=== PATIENT | female | born 1960 | race African-American/Black ===

== ENCOUNTER → 2017-08-10 | Outpatient (CLI) | payer OTHER | LOC: FIMAGING 13:47 | DX: Z12.31 Encounter for screening mammogram for malignant neoplasm of breast (principal) | CPT/HCPCS: G0202 ==

== ENCOUNTER 2018-09-06 05:50 | Day surgery (SDC) | payer BC, OTHER ==
[2018-09-06] MEDS ORDERED: ceFAZolin 2 GM/DEXTROSE 100 ML IV ONE (06:06)
[2018-09-06] MEDS ORDERED: LR 1,000 ML IV ONE (06:06)
[2018-09-06] MEDS ORDERED: MIDAZOLAM 2 MG/2 ML VIAL IVP ONE (06:52)
--- NOTE | 2018-09-06 06:52 | PDANEPAE ---
ANE History of Present Illness left side LN enlargement ANE Past Medical History - Cardiovascular History Hx Hypertension: Yes Hx Arrhythmias: No Hx Chest Pain: No Hx Coronary Artery / Peripheral Vascular Disease: No Hx CHF / Valvular Disease: No Hx Palpitations: No - Pulmonary History Hx COPD: No Hx Asthma/Reactive Airway Disease: No Hx Recent Upper Respiratory Infection: No Hx Oxygen in Use at Home: No Hx Sleep Apnea: No Sleep Apnea Screening Result - Last Documented: Negative - Neurologic History Hx Cerebrovascular Accident: No Hx Seizures: No Hx Dementia: No - Endocrine History Hx Diabetes: No Hypothyroid: No Hyperthyroid: No Obesity: no Endocrine History Comment: pre-diabetic on metformin - Renal History Hx Renal Disorders: No - Liver History Hx Hepatic Disorders: No - Neurological & Psychiatric Hx Hx Neurological and Psychiatric Disorders: No - Congenital Disorder History Hx Congenital Disorders: No - GI History GERD: no Hx Gastrointestinal Disorders: No - Other Health History Other Health History: none - Chronic Pain History Chronic Pain: No - Surgical History Prior Surgeries: none ANE Review of Systems Review of systems is: negative Review of Systems: - Exercise capacity METS (RN): 5 METS ANE Patient History - Allergies Allergies/Adverse Reactions: No Known Allergies Allergy (Unverified 09/06/18 06:34) - Home Medications Home medications: home medication list seen and reviewed Home Medications: Hydrochlorothiazide [HCTZ (*)] 09/06/18 [Last Taken 09/05/18] metFORMIN HCL [Metformin HCl] 850 mg PO 09/06/18 [Last Taken 09/05/18] - NPO status NPO Status: no food or drink >8 hours NPO Since - Liquids (Date): 09/05/18 NPO Since - Liquids (Time): 20:00 NPO Since - Solids (Date): 09/05/18 NPO Since - Solids (Time): 06:25 - Anes Hx Anes Hx: no prior problems - Smoking Hx Smoking Status: Former smoker Marijuana use: No - Alcohol Use Alcohol Use: Rarely - Family Anes Hx Family Anes Hx: none Family Hx Anesthesia Complications: no ANE Labs/Vital Signs - Vital Signs Blood Pressure: 94/66 Heart Rate: 79 Respiratory Rate: 14 O2 Sat (%): 96 Height: 160.02 cm Weight: 65.771 kg ANE Physical Exam - Airway Neck exam: FROM Mallampati Score: Class 2 Mouth exam: normal dental/mouth exam - Pulmonary Pulmonary: no respiratory distress, clear to auscultation - Cardiovascular Cardiovascular: regular rate and rhythym, no murmur, rub, or gallop - ASA Status ASA Status: II ANE Anesthesia Plan Anesthesia Plan: GA w LMA
[2018-09-06] MEDS ORDERED: PROPOFOL 200 MG/20 ML VIAL ONE (06:54)
[2018-09-06] MEDS ORDERED: LIDOCAINE 2% 5 ML SDV ONE (06:54)
[2018-09-06] MEDS ORDERED: fentaNYL 100 MCG/2 ML INJ ONE (06:54)
[2018-09-06] MEDS ORDERED: BUPIVACAINE 0.5% 30 ML SDV ONE (07:03)
[2018-09-06] MEDS ORDERED: THROMBIN (BOVINE) 20,000 UNIT SPRAY TP ONE (07:03)
[2018-09-06] MEDS ORDERED: BACITRACIN ZINC 14.2 GM OINTTUBE TP ONE (07:04)
--- NOTE | 2018-09-06 07:08 | PDHPUP ---
History & Physical Update H&P update statement: This history and physical update is based on an assessment of the patient which was completed after admission or registration (within 24 hours), but prior to the surgery/procedure. H&P update: H&P reviewed & patient examined, no change in patient's condition since H&P completed
[2018-09-06] MEDS ORDERED: ePHEDrine SULFATE 25 MG/5 ML SYR ONE (07:36)
[2018-09-06] MEDS ORDERED: ONDANSETRON 4 MG/2 ML VIAL ONE (07:46)
[2018-09-06] MEDS ORDERED: DEXAMETHASONE 4 MG/ML VIAL ONE (07:46)
[2018-09-06] MEDS ORDERED: MEPERIDINE 25 MG/0.5 ML AMP IVP PRN (07:48)
[2018-09-06] MEDS ORDERED: HYDROmorphONE/DILAUDID 2 MG/ML INJ IVP PRN (07:48)
[2018-09-06] MEDS ORDERED: NALOXONE HCL 0.4 MG/ML INJ IVP PRN (07:48)
[2018-09-06] MEDS ORDERED: fentaNYL 100 MCG/2 ML INJ IVP PRN (07:48)
[2018-09-06] MEDS ORDERED: PROMETHAZINE HCL 25 MG/ML INJ IVP PRN (07:48)
--- NOTE | 2018-09-06 07:49 | POSTANESTH ---
Post Anesthetic Evaluation Cardiovascular Status: Normal, Stable Respiratory Status: Normal, Stable Level of Consciousness/Mental Status: Can Participate in Eval, Moderately Sleepy Pain Control: Adequate, Prn Tx Ordered Nausea/Vomiting Control: Adequate, Prn Tx Ordered Complications Possibly Related to Anesthesia: None Noted
--- NOTE | 2018-09-06 08:05 | POSTOPPROG ---
Post Op Note Date of Operation: 09/06/18 Surgeon: Kevin Harding Director Of Pupil Personnel Program: Clementine Anesthesiologist: Lisa Anesthesia: GET(General Endotracheal) Pre-op Diagnosis: B-cell lymphoma Post-op Diagnosis: same Indication: definitive diagnosis Procedure: L axillary LN excision Findings: necrotic LNs Inf/Abcess present in the surg proc area at time of surgery?: No Depth: Superfical (Skin SQ) EBL: Minimal Specimen(s): L axillary lymph nodes - fresh
[2018-09-06 09:36] VITALS: BP 95/65
--- NOTE | 2018-09-07 19:59 | GOP ---
DATE OF OPERATION: 09/06/2018 SURGEON: Kevin Harding MD CAD DRAFTSMAN: Unique Spring NP. ANESTHESIOLOGIST: Elmer Gonzalez MD. PREOPERATIVE DIAGNOSIS: Possible lymphoma with axillary adenopathy. POSTOPERATIVE DIAGNOSIS: Possible lymphoma with axillary adenopathy. PROCEDURE PERFORMED: Superficial left axillary node dissection. FINDINGS: The patient was found to have multiple enlarged matted nodes in the left axilla. DESCRIPTION OF PROCEDURE: The patient was taken to the operating room where she received satisfactor y general endotracheal anesthesia by Dr. Gonzalez. She was placed in supine position with the left arm o utstretched on an arm board, prepped and draped in the usual sterile fashion. A curvilinear incision was made in the base of the axilla. Dissection extended down through the subcutaneous tissue and th rough the axillary fascia. A cluster of enlarged nodes was grasped with the Allis clamp and dissecte d free. Hemostasis was obtained with hemoclips and electrocautery, and the nodes were sent to [facility] for flow cytometry. Hemostasis was carefully obtained. Some thrombin was placed in the ax illary cavity along with some 0.5% Marcaine. The wound was closed in layers using 3-0 Vicryl for the fascia and subcutaneous tissue and 4-0 Monocryl subcuticular stitch for the skin. She tolerated the procedure well. Blood loss negligible. No complications. Taken to recovery room in good condition . Copy requested to: Dr. Sebastian /[id number]/MODL
== END 2018-09-06 10:00 | disposition home or self-care (01) ==
LOC: FSGY 05:50
PROVIDERS: ATTEND Surgery
PROC: 07B20ZX Excision of Left Neck Lymphatic, Open Approach, Diagnostic (ICD-10-PCS; principal; 2018-09-06 07:15)
DX: K11.20 Sialoadenitis, unspecified (principal); D48.7 Neoplasm of uncertain behavior of other specified sites; R91.1 Solitary pulmonary nodule; I10 Essential (primary) hypertension; E78.5 Hyperlipidemia, unspecified; R73.03 Prediabetes; Z87.891 Personal history of nicotine dependence
CPT/HCPCS: 88184-90; 88185-91; J0690; J1100; J2250; J2405; J2704; J3010

== ENCOUNTER 2018-10-17 09:02 | Observation (INO) | payer BC ==
[2018-10-17] MEDS ORDERED: LIDOCAINE 1% 2 ML INJ ID PRN (09:43)
[2018-10-17] MEDS ORDERED: LR 1,000 ML IV ONE (09:43)
[2018-10-17] MEDS ORDERED: LIDO/EPI 1% **Not for Epidural 20 ML MDV ONE (09:59)
[2018-10-17] MEDS ORDERED: BACITRACIN ZINC 0.5 OZ OINTTUBE TP ONE (09:59)
[2018-10-17] MEDS ORDERED: OXYMETAZOLINE 30 ML NASAL SPRAY ONE (09:59)
[2018-10-17] MEDS ORDERED: ceFAZolin 2 GM/DEXTROSE 100 ML IV ONE (10:14)
[2018-10-17] MEDS ORDERED: DEXAMETHASONE 4 MG/ML VIAL IVP ONE (10:14)
[2018-10-17] MEDS ORDERED: MIDAZOLAM 2 MG/2 ML VIAL IVP ONE (10:35)
--- NOTE | 2018-10-17 10:35 | PDANEPAE ---
ANE History of Present Illness Parotid tumor, here for resection ANE Past Medical History - Cardiovascular History Hx Hypertension: Yes Hx Arrhythmias: No Hx Chest Pain: No Hx Coronary Artery / Peripheral Vascular Disease: No Hx CHF / Valvular Disease: No Hx Palpitations: No - Pulmonary History Hx COPD: No Hx Asthma/Reactive Airway Disease: No Hx Recent Upper Respiratory Infection: No Hx Oxygen in Use at Home: No Hx Sleep Apnea: No Sleep Apnea Screening Result - Last Documented: Negative - Neurologic History Hx Cerebrovascular Accident: No Hx Seizures: No Hx Dementia: No - Endocrine History Hx Diabetes: No Endocrine History Comment: pre-diabetic on metformin - Renal History Hx Renal Disorders: No - Liver History Hx Hepatic Disorders: No - Neurological & Psychiatric Hx Hx Neurological and Psychiatric Disorders: No - Cancer History Hx Cancer: No - Congenital Disorder History Hx Congenital Disorders: No - GI History Hx Gastrointestinal Disorders: No - Other Health History Other Health History: none - Chronic Pain History Chronic Pain: No - Surgical History Prior Surgeries: L AXILLARY LYMPH NODES ANE Review of Systems Review of Systems: - Exercise capacity METS (RN): 4 METS ANE Patient History - Allergies Allergies/Adverse Reactions: No Known Allergies Allergy (Verified 10/17/18 09:54) - Home Medications Home Medications: metFORMIN HCL [Metformin HCl] 850 mg PO DAILY 09/06/18 [Last Taken 10/16/18 09: 00] Hydrochlorothiazide [HCTZ (*)] 25 mg PO DAILY 10/02/18 [Last Taken 10/16/18 07: 00] Multivitamins [Multivitamin (*)] 1 each PO DAILY 10/02/18 [Last Taken 10/10/18] [place]-3 Fatty Acids [Fish Oil 1000 mg (*)] 1,000 mg PO DAILY 10/02/18 [Last Taken 10/10/18] - NPO status NPO Since - Liquids (Date): 10/16/18 NPO Since - Liquids (Time): 21:00 NPO Since - Solids (Date): 10/16/18 NPO Since - Solids (Time): 21:00 - Smoking Hx Smoking Status: Former smoker - Family Anes Hx Family Hx Anesthesia Complications: no ANE Labs/Vital Signs - Vital Signs Blood Pressure: 111/75 Heart Rate: 70 Respiratory Rate: 16 O2 Sat (%): 99 Height: 154.94 cm Weight: 63.503 kg ANE Physical Exam - Airway Neck exam: FROM Mallampati Score: Class 1 Mouth exam: normal dental/mouth exam - Pulmonary Pulmonary: no respiratory distress, no rales or rhonchi - Cardiovascular Cardiovascular: regular rate and rhythym, no murmur, rub, or gallop - ASA Status ASA Status: II ANE Anesthesia Plan Anesthesia Plan: general endotracheal anesthesia Total IV Anesthesia: No
[2018-10-17] MEDS ORDERED: MIDAZOLAM 2 MG/2 ML VIAL ONE (10:41)
[2018-10-17] MEDS ORDERED: PROPOFOL 200 MG/20 ML VIAL ONE ×2 (10:43→11:09)
[2018-10-17] MEDS ORDERED: ROCURONIUM 50 MG/5 ML VIAL ONE (10:43)
[2018-10-17] MEDS ORDERED: LIDOCAINE 2% 100 MG/5 ML SYR ONE (10:43)
[2018-10-17] MEDS ORDERED: fentaNYL 250 MCG/5 ML INJ ONE (10:43)
[2018-10-17] MEDS ORDERED: ONDANSETRON 4 MG/2 ML VIAL ONE (10:43)
[2018-10-17] MEDS ORDERED: SUCCINYLCHOLINE CHLORIDE 200 MG/10 ML SYR IVP ONE (11:09)
[2018-10-17] MEDS ORDERED: PHENYLEPHRINE HCL 100 MCG/ML SYR ONE (11:09)
[2018-10-17] MEDS ORDERED: HYDROmorphONE/DILAUDID 2 MG/ML INJ ONE (13:28)
[2018-10-17] MEDS ORDERED: ACETAMINOPHEN 500 MG TAB PO PRN (13:32)
[2018-10-17] MEDS ORDERED: LR 500 ML IV PRN (13:32)
[2018-10-17] MEDS ORDERED: ONDANSETRON 4 MG/2 ML VIAL IVP PRN (13:32)
[2018-10-17] MEDS ORDERED: oxyCODONE IR 5 MG TAB PO PRN (13:32)
[2018-10-17] MEDS ORDERED: MEPERIDINE 25 MG/0.5 ML AMP IVP PRN (13:32)
[2018-10-17] MEDS ORDERED: HYDROmorphONE/DILAUDID 2 MG/ML INJ IVP PRN (13:32)
[2018-10-17] MEDS ORDERED: fentaNYL 100 MCG/2 ML INJ IVP PRN (13:32)
[2018-10-17] MEDS ORDERED: PROMETHAZINE HCL 25 MG/ML INJ IVP PRN (13:32)
[2018-10-17] MEDS ORDERED: NALOXONE HCL 0.4 MG/ML INJ IVP PRN (13:32)
--- NOTE | 2018-10-17 13:43 | POSTOPPROG ---
Post Op Note Date of Operation: 10/17/18 Surgeon: Chai Barahona Qa Engineer: Angelica Anesthesia: GET(General Endotracheal) Pre-op Diagnosis: parotid mass c/w b cell lymphoma / nasal obstruction Post-op Diagnosis: same Indication: see above Procedure: left sup parotidecdtomy with SMRIT Findings: left parotid masses fz section c/w lymphoma Inf/Abcess present in the surg proc area at time of surgery?: No Depth: Deep Incisional (Fascial) EBL: 50-100 Total fluids administered: 1200 Complications: none Drains: Surendra (l) Specimen(s): left parotid mass
--- NOTE | 2018-10-17 13:55 | POSTANESTH ---
Post Anesthetic Evaluation Cardiovascular Status: Normal, Stable Respiratory Status: Normal, Stable Level of Consciousness/Mental Status: Can Participate in Eval, Alert and Oriented Pain Control: Adequate, Prn Tx Ordered Nausea/Vomiting Control: Adequate, Prn Tx Ordered Complications Possibly Related to Anesthesia: None Noted
[2018-10-17] MEDS ORDERED: ACETAMINOPHEN 325 MG TAB PO PRN (13:56)
[2018-10-17] MEDS ORDERED: fentaNYL 100 MCG/2 ML INJ ONE (14:11)
[2018-10-17] MEDS: NS 1,000 ML IV SCH (15:22)
[2018-10-17] MEDS: OXYCODONE/APAP 5/325 TAB PO PRN ×3 (15:35→21:17)
--- NOTE | 2018-10-17 17:23 | SOAPPROG ---
SOAP Progress Note Assessment/Plan: Assessment: Post op left superficial parotidectomy and SMRIT Pt doing well. No bleeding. No nerve deficits. Plan: If continues to do well will d/c in the morning 10/17/18 17:18 Subjective: Pt reports she is doing well. Objective: Vital Signs Temp Pulse Resp BP Pulse Ox 37.1 C 53 L 16 95/69 L 93 10/17/18 15:17 10/17/18 16:17 10/17/18 16:17 10/17/18 16:17 10/17/18 16:17 10/16/18 10/17/18 10/18/18 05:59 05:59 05:59 Intake Total 1325 Output Total 20 Balance 1305 VSS, afebrile, wound dry, pack in place. Resting comfortably - Pending Discharge Pending Discharge Within 24 Hours: Yes Pending Discharge Date: 10/18/18 Pending Discharge Time: 11:00 ICD10 Worksheet Patient Problems: Problems Problem Status Onset Parotid mass Acute
[2018-10-17] MEDS ORDERED: SODIUM CL NASAL 45 ML BTL EACHNARE PRN (17:30)
[2018-10-17] MEDS: OXYMETAZOLINE 30 ML NASAL SPRAY EACHNARE PRN (18:06)
[2018-10-18] MEDS: OXYCODONE/APAP 5/325 TAB PO PRN ×2 (03:41→08:27)
[2018-10-18] MEDS: NS 1,000 ML IV SCH (03:41)
[2018-10-18] MEDS: OXYMETAZOLINE 30 ML NASAL SPRAY EACHNARE PRN (04:52)
[2018-10-18 08:21] VITALS: BP 106/63
--- NOTE | 2018-10-18 11:41 | SOAPPROG ---
SOAP Progress Note Assessment/Plan: pt s/p parotidectomy yesterday. doing well. drain removed. new dressing applied. Plan: discharge today./ F/u 1 week. Apply ointment. call if any swelling. 10/18/18 11:41 Objective: Vital Signs Temp Pulse Resp BP Pulse Ox 36.6 C 65 16 106/63 99 10/18/18 08:00 10/18/18 08:00 10/18/18 08:00 10/18/18 08:00 10/18/18 08:00 10/17/18 10/18/18 10/19/18 05:59 05:59 05:59 Intake Total 1975 Output Total 20 Balance 1954 ICD10 Worksheet Patient Problems: Problems Problem Status Onset Parotid mass Acute
--- NOTE | 2018-10-18 11:42 | PDDCSUM ---
Discharge Summary Discharge Summary: pt s/parotidectomy yesterday. doing well. no complications. drain removed. f/u 1 week. call if any swelling.
--- NOTE | 2018-10-18 15:53 | GOP ---
DATE OF OPERATION: 10/17/2018 SURGEON: Alexandru Barahona MD BEATER AND PULPER FEEDER: Sina Dominguez MD. ANESTHESIA: general endotracheal. PREOPERATIVE DIAGNOSIS: 1. Left parotid masses, prior fine-needle biopsy read as consistent with B-cell lymphoma on flow, no w with progression of masses. 2. chronic nasal congestion. POSTOPERATIVE DIAGNOSIS: PROCEDURE PERFORMED: Left superficial parotidectomy with facial nerve dissection and preservation as well as submucosal resection of the inferior turbinates with partial resection of the inferior turbi nates and inferior turbinate outfracture with cautery. FINDINGS: 1. Two left parotid masses, inferior mass excised and read on frozen section as consistent with lymp camacho. 2. Severe inferior turbinate hypertrophy bilaterally resulting in complete nasal obstruction treated by submucosal resection of the inferior turbinates with inferior turbinate outfracture. ESTIMATED BLOOD LOSS: 50 mL. DESCRIPTION OF PROCEDURE: The patient was placed on the operating table in supine position. After i nduction of adequate general endotracheal anesthesia, a shoulder roll was placed on the patient's alyce ulder. The patient's head was turned toward the right, exposing the entire left face. At this point , an incision was planned and created in the standard position for parotidectomy. The incision in th e preauricular region curved briefly to pass posterior to the tragus and then ran anterior to the aur icle. It then extended into the upper neck in a standard fashion. The incision was carried down thr ough the underlying soft tissues until the SMAS was reached. The flap was then elevated well anterio rly in a plane superficial to the SMAS. It was noted the two separate masses were present in the par otid, both in its midportion and inferiorly. Dissection then proceeded along the sternocleidomastoid , and the parotid tissue was reflected anteriorly. The dissection of parotid tissues off the tragal cartilage and our goal was performed on a broad front so that further exposure in the region of the t ragal pointer could be obtained. The posterior belly of the digastric was dissected further posterio rly. In the area of the tragal pointer and superior aspect of the posterior belly of the digastric t he facial nerve was encountered. Care was given to the avoidance of trauma to the main trunk of the facial nerve as well as the facial nerve branches. The main trunk was dissected to the level of the pes anserinus by dividing the soft tissues superficial to the parotid after electrocautery with the b ipolar electrocautery. As dissection proceeded along the inferior nerve branches, the large inferior parotid mass was reflected further inferiorly. Progressive dissection of the nerve branches then pr oceeded, and once this had been completed the mass was dissected free of the facial nerve branches an d then delivered. Frozen section analysis of the left parotid mass was read as consistent with lymph oid infiltrate. The patient reviewed this in combination with a prior fine-needle biopsy which was r ead as suspicious for lymphoma and felt that further resection of the superior mass was not necessary in order to obtain a diagnosis, and likely this represented lymphoma. At this point, the parotid fl ap was laid back into position. A Surendra drain was placed deeply into the wound and passed up throu gh the posterior aspect of the skin flap. This was sutured into place with a 2-0 silk suture. The d eep layer closure of the wound was performed with interrupted 5-0 Monocryl sutures. The preauricular incision was closed with a running 5-0 rapid absorbing gut. The inferior portion of the wound was c losed with a running locked 5-0 Prolene sutures. At this point, attention was directed to the patien t's nose. The nose was noted to be essentially completely obstructed secondary to turbinate hypertro phy. Pledgets soaked in 0.5% Mauricio-Synephrine were inserted into the right and left sides of the nose. In addition, the soft tissues overlying the inferior turbinates were hydro infiltrated utilizing 1% lidocaine with 1:100,000 parts epinephrine. Initially, the left inferior turbinate was addressed. The Xomed polyp shaver utilizing a 2 mm blade was used to perform submucosal resection of the inferio r turbinates. Initially a stab incision was created along the anterior aspect of the turbinate and t hen numerous passes were made along the long axis of the inferior turbinate using the elevator portio n of the turbinate blade. At this point, suction was applied to the turbinate blade and numerous pas ses were made longitudinally on the left inferior turbinates to markedly reduce the submucosal mass. Once submucosal resection of the inferior turbinate had been completed, it was noted the turbinate s till remained somewhat hypertrophic. It was then infractured, and its medial and inferior margins we re cut with a curved scissors and then treated with the suction Bovie electrocautery. The turbinate was then outfractured. It was still noted that the tail of the turbinate was somewhat hypertrophic a nd obstructed the posterior aspect of the nasal cavity. The posterior aspect of the turbinate was tr eated with the suction Bovie electrocautery until it was markedly reduced in size. An identical proc edure was performed on the right before submucosal resection of the inferior turbinate was performed followed by partial resection of the inferior turbinates, inferior turbinate outfracture, and cautery of the tail of the turbinates. At this point rolled Telfa was inserted into the right and left side s of the nose to act as nasal packing. Attention was redirected to the parotid wound. Gloves were c hanged. At this point showed that sterility could be maintained. The area surrounding the wound was cleansed. Bacitracin was applied. The sterile Avalos pressure dressing was then applied. The ton ent was then awakened and transferred to postanesthesia recovery in stable condition. FLUID REPLACEMENT: 1200 mL. COMPLICATIONS: None. /[id number]/MODL
== END 2018-10-18 11:32 | disposition home or self-care (01) ==
LOC: F3E 09:02
PROVIDERS: ADMIT Otolaryngology; ATTEND Otolaryngology
PROC: 0CB90ZZ Excision of Left Parotid Gland, Open Approach (ICD-10-PCS; principal; 2018-10-17 10:30)
PROC: 09TL7ZZ Resection of Nasal Turbinate, Via Natural or Artificial Opening (ICD-10-PCS; principal; 2018-10-17 10:30)
DX: D49.0 Neoplasm of unspecified behavior of digestive system (principal); J34.89 Other specified disorders of nose and nasal sinuses; I10 Essential (primary) hypertension
CPT/HCPCS: 30140; 42410; G0378; 88184-90; 88185-91; 88323-90; 88342; J0330; J0690; J1100; J1170; J2001; J2250; J2370; J2405; J2704; J3010

== ENCOUNTER 2019-01-19 09:59 | Emergency (ER) | payer BC, OTHER ==
--- NOTE | 2019-01-19 10:06 | EDPHY ---
H & P Time Seen by Provider: 01/19/19 10:03 HPI/ROS: CHIEF COMPLAINT: Altered mental status, stroke alert Limitations: Altered mental to have status, patient unable to speak HISTORY OF PRESENT ILLNESS: 58-year-old female with HTN and diabetes presents with altered mental status. Last seen normal by son at 0700. c/o rt leg pain at that time. Family returned at 0930 and found pt with altered mental status, unable to speak and unable to follow commands. No seizure activity or known recent head trauma. No h/o drug use or prior similar episode. 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 REVIEW OF SYSTEMS: Unable to determine Source: Family Exam Limitations: Clinical condition - Medical/Surgical History Other PMH: HTN, Diabetes - Family History Significant Family History: No pertinent family hx - Social History Smoking Status: Former smoker Alcohol Use: Sober Drug Use: None - Physical Exam Exam: General Appearance: Alert, agitated, looks at me when I speak, mumbles, unable to answer questions Eyes: Pupils equal and round, no conjunctival pallor or injection ENT, Mouth: Mucous membranes moist Neck: Normal inspection Respiratory: Lungs are clear to auscultation anteriorly Cardiovascular: Regular rate and rhythm Gastrointestinal: Abdomen is soft and nontender Back: normal inspection Neurological: Alert, symmetric facial movements, moves all extremities, strong throughout, does not follow commands Skin: Warm and dry Extremities: Normal inspection, no erythema or swelling, ROM without apparent pain Psychiatric: Unable to determine Constitutional: Initial Vital Signs Temperature (C) 37.4 C 01/19/19 10:19 Heart Rate 111 H 01/19/19 10:19 Respiratory Rate 20 01/19/19 10:19 Blood Pressure 132/78 H 01/19/19 10:19 O2 Sat (%) 97 01/19/19 10:19 O2 Delivery Mode Room Air Allergies/Adverse Reactions: No Known Allergies Allergy (Verified 10/17/18 09:54) Home Medications: Medication Instructions Recorded metFORMIN HCL [Metformin HCl] 850 mg PO DAILY 09/06/18 Hydrochlorothiazide [HCTZ (*)] 25 mg PO DAILY 10/02/18 Multivitamins [Multivitamin (*)] 1 each PO DAILY 10/02/18 [place]-3 Fatty Acids [Fish Oil 1000 1,000 mg PO DAILY 10/02/18 mg (*)] Medical Decision Making - Diagnostics Imaging Results: Imaging Impressions Head CT 01/19/19 10:01 Impression: 1. Normal brain. No intracranial hemorrhage or evidence of acute ischemia. 2. Left parotid mass. Findings discussed with emergency department physician, Tamara Singer MD on January 19, 2019 at 10:13 a.m. Head CTA 01/19/19 10:17 Impression: 1. Normal intracranial arterial circulation. No evidence of embolic disease or aneurysm. 2. Patent venous system. CT angiogram neck: The cervicothoracic aorta is normal caliber, giving rise to normal four-vessel neck anatomy. The aortic arch has minimal calcified plaque. No aortic dissection in the arch. Minimal mixed calcified and noncalcified plaque in bilateral carotid bulbs results in less than 10% narrowing. No ulcerative plaque, occlusion, or dissection. Minimal motion artifact involves the distal left common carotid artery. Bilateral vertebral arteries are patent. The left vertebral artery is the dominant vessel feeding the posterior circulation. CT Neck: Lung apices are clear. Bilateral parotid ring-enhancing cystic nodules. The largest on the left measures 2.2 x 1.7 cm. The largest on the right measures 1.3 x 2.0 cm. No enlarged lymph nodes or necrotic nodes. No fluid collection in the neck. Impression: 1. Minimal bilateral carotid bulb plaque. No occlusion, dissection, or flow- limiting stenosis. 2. Patent bilateral vertebral arteries. 3. Bilateral cystic and solid parotid gland masses. Findings discussed with emergency department physician, Tamara Singer MD on January 19, 2019 at 10:48 a.m. Chest X-Ray 01/19/19 10:44 Impression: 1. Clear lungs. No evidence of aspiration or edema. 2. Borderline cardiomegaly. No failure. Imaging: Discussed imaging studies w/ score caller Radiologist, I viewed and interpreted images myself ED Course/Re-evaluation: This patient presents as a stroke alert with AMS. I met the patient in the hallway and she went directly to CT. Agitated, unable to speak, WILD equally, not following commands. ?post-ictal, CVA, metabolic encephalopathy. CT scan reported to me by Dr. Ricci is unremarkable except for a left parotid tumor. 1010a: family present. No h/o seizure and no recent illness/hospitalization. 1015a: Patient interviewed by Dr. Craft of [facility] tele[facility]. Dr. Craft requests a CTA of the brain and neck and then he will reassess her. Advises no tpa for now. Pt taken back to CT, accompanied by ED RN. Neuro exam unchanged. [id number]: Dr. Craft interviewing pt and family. Pt's neuro status unchanged. Oral temp 37.4 11am: decision to give TPA by Dr. Craft, then transfer to [facility] by helicopter. Dr. Craft d/w family risks/benefits of tpa and they concur. TPA ordered. EMTALA completed. ED staff unable to obtain EKG d/t pt's agitation, pulling at wires and movement. d/w flight crew, will give Ativan as needed to keep pt safe in route. Neuro status unchanged throughout ED stay. I spent a total of 50 minutes of critical care time in obtaining history, performing a physical exam, bedside monitoring of interventions, collecting and interpreting tests and discussion with consultants but not including time spent performing procedures. Organ at risk: Brain Differential Diagnosis: Altered mental status including but not limited to hypoglycemia, infectious process, electrolyte abnormality, head injury, CVA, and intoxicants. - Data Points Laboratory Results: Laboratory Results 01/19/19 10:05 01/19/19 10:05 01/19/19 01/19/19 01/19/19 10:13 10:10 10:08 WBC RBC Hgb POC Hgb 12.6 gm/dL gm/dL (12.6-16.3) Hct POC Hct 37 % L % (38-47) MCV MCH MCHC RDW Plt Count MPV Neut % (Auto) Lymph % (Auto) [place] % (Auto) Eos % (Auto) Baso % (Auto) Nucleat RBC Rel Count Absolute Neuts (auto) Absolute Lymphs (auto) Absolute Monos (auto) Absolute Eos (auto) Absolute Basos (auto) Absolute Nucleated RBC Immature Gran % Seg Neutrophils % Band Neutrophils % Lymphocytes % Monocytes % Eosinophils % Basophils % Metamyelocytes % Myelocytes % Promyelocytes % Blast Cells % Immature Gran # Absolute Seg Neuts Absolute Band Neuts Absolute Lymphocytes Absolute Monocytes Absolute Eosinophils Absolute Basophils Absolute Metamyelocyte Absolute Myelocytes Absolute Promyelocytes Absolute Plasma Cells Nucleated RBCs Absolute Blast Cells Plasma Cells % Platelet Estimate Oval Macrocytes PT 16.0 SEC H SEC (12.0-15.0) INR 1.34 H (0.83-1.16) APTT 29.7 SEC SEC (23.0-38.0) POC Sodium 136 mEq/L mEq/L (135-145) Sodium POC Potassium 3.7 mEq/L mEq/L (3.3-5.0) Potassium POC Chloride 96 mEq/L L mEq/L (97-110) Chloride Carbon Dioxide POC Total CO2 27 mEq/L mEq/L (22-31) Anion Gap POC BUN 23 mg/dL mg/dL (7-23) BUN Creatinine POC Creatinine 1.1 mg/dL H mg/dL (0.6-1.0) Estimated GFR Glucose POC Glucose 161 mg/dL H mg/dL (70-100) Calcium POC Troponin I 0.01 ng/mL ng/mL (0.00-0.08) 01/19/19 01/19/19 10:05 10:05 WBC 9.16 10^3/uL 10^3/uL (3.80-9.50) RBC 4.26 10^6/uL 10^6/uL (4.18-5.33) Hgb 10.8 g/dL L g/dL (12.6-16.3) POC Hgb Hct 33.9 % L % (38.0-47.0) POC Hct MCV 79.6 fL L fL (81.5-99.8) MCH 25.4 pg L pg (27.9-34.1) MCHC 31.9 g/dL L g/dL (32.4-36.7) RDW 16.2 % H % (11.5-15.2) Plt Count 164 10^3/uL 10^3/uL (150-400) MPV 8.8 fL fL (8.7-11.7) Neut % (Auto) Not Reported Lymph % (Auto) Not Reported [place] % (Auto) Not Reported Eos % (Auto) Not Reported Baso % (Auto) Not Reported Nucleat RBC Rel Count Not Reported Absolute Neuts (auto) Not Reported Absolute Lymphs (auto) Not Reported Absolute Monos (auto) Not Reported Absolute Eos (auto) Not Reported Absolute Basos (auto) Not Reported Absolute Nucleated RBC Not Reported Immature Gran % Not Reported Seg Neutrophils % 56.0 % % Band Neutrophils % 22.0 % % Lymphocytes % 14.0 % % Monocytes % 5.0 % % Eosinophils % 0.0 % % Basophils % 0.0 % % Metamyelocytes % 3.0 % % Myelocytes % 0.0 % % Promyelocytes % 0.0 % % Blast Cells % 0.0 % % Immature Gran # Not Reported Absolute Seg Neuts 5.13 10^3/uL 10^3/uL (1.70-6.50) Absolute Band Neuts 2.02 10^3/uL H 10^3/uL (0.00-0.70) Absolute Lymphocytes 1.28 10^3/uL 10^3/uL (1.00-3.00) Absolute Monocytes 0.46 10^3/uL 10^3/uL (0.30-0.80) Absolute Eosinophils 0.00 10^3/uL L 10^3/uL (0.03-0.40) Absolute Basophils 0.00 10^3/uL L 10^3/uL (0.02-0.10) Absolute Metamyelocyte 0.27 10^3/mL H 10^3/mL (0.00-0.00) Absolute Myelocytes 0.00 10^3/mL 10^3/mL (0.00-0.00) Absolute Promyelocytes 0.00 10^3/uL 10^3/uL (0.00-0.00) Absolute Plasma Cells 0.00 10^3/uL 10^3/uL (0.00-0.00) Nucleated RBCs 1.0 /100 WBC H /100 WBC (0-0) Absolute Blast Cells 0.00 10^3/uL 10^3/uL (0.00-0.00) Plasma Cells % 0.0 % % Platelet Estimate ADEQUATE (ADEQ) Oval Macrocytes 1+ H PT INR APTT POC Sodium Sodium 134 mEq/L L mEq/L (135-145) POC Potassium Potassium 3.6 mEq/L mEq/L (3.5-5.2) POC Chloride Chloride 96 mEq/L L mEq/L (97-110) Carbon Dioxide 27 mEq/l mEq/l (22-31) POC Total CO2 Anion Gap 11 mEq/L mEq/L (6-14) POC BUN BUN 24 mg/dL H mg/dL (7-23) Creatinine 1.1 mg/dL H mg/dL (0.6-1.0) POC Creatinine Estimated GFR 51 Glucose 156 mg/dL H mg/dL (70-100) POC Glucose Calcium 9.0 mg/dL mg/dL (8.5-10.4) POC Troponin I Medications Given: Discontinued Medications Alteplase, Recombinant (Activase) 5.715 mg 0.09 mg/kg (5.715 mg) IV ONCE ONE PRN Reason: Protocol Stop: 01/19/19 11:02 Last Admin: 01/19/19 11:10 Dose: 5.715 mg Alteplase, Recombinant (Activase) 51.435 mg 0.81 mg/kg (51.435 mg) IV ONCE ONE PRN Reason: Protocol Stop: 01/19/19 11:02 Last Admin: 01/19/19 11:11 Dose: 51.435 mg Sodium Chloride (Ns) 50 mls @ 0 mls/hr IV EDNOW ONE PRN Reason: Per Protocol Stop: 01/19/19 11:02 Last Admin: 01/19/19 11:44 Dose: Not Given Point of Care Test Results: Chemistry 01/19/19 01/19/19 10:13 10:08 POC Sodium 136 mEq/L mEq/L (135-145) POC Potassium 3.7 mEq/L mEq/L (3.3-5.0) POC Chloride 96 mEq/L L mEq/L (97-110) POC Total CO2 27 mEq/L mEq/L (22-31) POC BUN 23 mg/dL mg/dL (7-23) POC Creatinine 1.1 mg/dL H mg/dL (0.6-1.0) POC Glucose 161 mg/dL H mg/dL (70-100) POC Troponin I 0.01 ng/mL ng/mL (0.00-0.08) ISTAT H&H 01/19/19 10:08 POC Hgb 12.6 gm/dL gm/dL (12.6-16.3) POC Hct 37 % L % (38-47) Departure - Departure Disposition: Acute Care Hospital Not [facility] Clinical Impression: Acute ischemic stroke Altered mental status Qualifiers: Altered mental status type: unspecified Qualified Code(s): R41.82 - Altered mental status, unspecified Condition: Critical Referrals: Patient,NotPresent [Unknown] - As per Instructions
[2019-01-19] MEDS ORDERED: ALTEPLASE 100 MG/100 ML VIAL IV ONE ×2 (10:13→11:01)
[2019-01-19 10:17] LABS: PLATELET COUNT 164 10^3/uL (150-400)
[2019-01-19] MEDS ORDERED: IOPAMIDOL (ISOVUE 370) 100 ML BTL IV ONE (11:00)
[2019-01-19] MEDS ORDERED: ALTEPLASE 1 MG/ML SYR IV ONE (11:01)
[2019-01-19] MEDS ORDERED: NS 50 ML IV ONE (11:01)
[2019-01-19 11:13] LABS: INR 1.34 (0.83-1.16)
[2019-01-19 11:57] VITALS: BP 128/74
--- NOTE | 2019-01-19 14:18 | ASMTCMCOM ---
CM Note CM Note Notes: Pt presented to the ED via EMS as a Stroke Alert. Pt was reported to be last seen normal by family around 6:45am. This CM met the pt's family in the ED waiting area; pt's family included pt's oldest daughter and POA, Amberly Mckeon ([phone]); pt's daughter Jessica Colindres ([phone]) and pt's son-in-law Jorge Colindres ([phone]), and various grandchildren. Pt's son arrived later to the ED. This CM provided various updates, emotional support and other assistance throughout the pt's ED visit. Pt was transferred to [facility] by helicopter. This CM ensured all of the pt's children had [facility]'s address and contact info. CM available for further assistance if needed. Date Signed: 01/19/2019 02:18 PM Electronically Signed By:Lu Quevedo RN
--- NOTE | 2019-01-19 14:21 | ASDISCHSUM ---
Discharge Information Plan Status:Acute Transfer Medically Cleared to Leave: Discharge Date:01/19/2019 11:46 AM CM D/C Disposition:[facility] ADT D/C Disposition:[facility] Projected Discharge Date:01/19/2019 11:46 AM Transportation at D/C:[facility] Discharge Delay Reason: Follow-Up Date:01/19/2019 11:46 AM Discharge Slot: Final Diagnosis: Placement Information Patient Contact Information Contact Name:MAUREEN Relationship:Daughter Address: Work Phone: City: [facility] Phone: State/Zip Code: Email: Financial Information Financial Class:BCOP Primary Plan Desc: OUT OF STATE [facility] Primary Plan Number:[id number] Secondary Plan Desc:[facility] [place] Secondary Plan Number:[id number] Assessment Information [facility] Progress Note CM Note CM Note Notes: Pt presented to the ED via EMS as a Stroke Alert. Pt was reported to be last seen normal by family around 6:45am. This CM met the pt's family in the ED waiting area; pt's family included pt's oldest daughter and POA, Amberly Mckeon ([phone]); pt's daughter Jessica Colindres ([phone]) and pt's son-in-law Jorge Colindres ([phone]), and various grandchildren. Pt's son arrived later to the ED. This CM provided various updates, emotional support and other assistance throughout the pt's ED visit. Pt was transferred to [facility] by helicopter. This CM ensured all of the pt's children had [facility]'s address and contact info. available for further assistance if needed. Date Signed: 01/19/2019 02:18 PM Electronically Signed By:Lu Quevedo RN Intervention Information Intervention Type:Emotional Support Date of Service:01/19/2019 02:18 PM Patient Type:Emergency Room Staff Member:YUNG Quevedo [place] Hours:0.75 Discipline:[employer]itor Severity: Comment:
== END 2019-01-19 11:46 | disposition short-term general hospital (02) ==
LOC: EDUNIT#
DX: I63.9 Cerebral infarction, unspecified (principal); I10 Essential (primary) hypertension; E11.9 Type 2 diabetes mellitus without complications
CPT/HCPCS: 82435-PO; 82565-PO; 82947-PO; 84132-PO; 84295-PO; 84484-ER; 84520-PO; 85014-ER; J2997; Q9967